=== PATIENT | female | born 1975 ===

== ENCOUNTER 2017-09-20 14:33 | Emergency (ER) | payer OTHER ==
[~2017-09-20] VITALS: Ht 170.2 cm; Wt 93.4 kg
[2017-09-20] MEDS ORDERED: MUCINEX DM ER1 EAC1 PO (19:28)
[2017-09-20] MEDS ORDERED: TESSALON PERLE100 M1 PO (19:28)
[2017-09-20] MEDS ORDERED: MEDROLPACK PO (19:28)
[2017-09-20] MEDS ORDERED: SYMBICORT 16010.2 GM IH (19:28)
[2017-09-20] MEDS ORDERED: VENTOLIN HFA18 GM IH (19:28)
[2017-09-20] MEDS ORDERED: LEVAQUIN750 MG PO (19:28)
== END 2017-09-20 21:25 | disposition home or self-care (01) ==
LOC: ER 14:33
DX: J06.9 Acute upper respiratory infection, unspecified (principal)